=== PATIENT | female | born 1980 | race Caucasian/White ===

== ENCOUNTER 2020-10-19 13:34 | Emergency (ER) | payer OTHER, SELFPAY ==
[2020-10-19 13:40] VITALS: BP 139/74; PULSE 83; RESP 16; TEMP 37.4; O2SAT 98
--- NOTE | 2020-10-19 14:01 | ED.FEMALEGU ---
HPI - Female Genitourinary General Chief complaint: Urogenital-Female Stated complaint: Kidney infection Time Seen by Provider: 10/19/20 14:01 Source: patient and RN notes reviewed Mode of arrival: ambulatory Limitations: no limitations History of Present Illness HPI Narrative: 40-year-old female presents to the [facility] with lower back pain. Reports that she was seen at another clinic and was told she did not have a UTI. Is waiting for her culture to come back. Patient states the pain is in her lower back. No loss retention of bowel or bladder. No frequency or urgency. Worse with movement. Denies nausea vomiting or diarrhea. Denies fevers. No chest pain or shortness of breath. Reports that she does have a history of multiple UTIs but has not had one in several years Related Data Allergies Allergy/AdvReac Type Severity Reaction Status Date / Time Sulfa (Sulfonamide Allergy Unknown SWELLS UP Verified 10/19/20 13:52 Antibiotics) Review of Systems Review of Systems: Narrative: CONSTITUTIONAL: Denies fever, chills, or sweats. CARDIOVASCULAR: Denies chest pain, palpitations, or edema. RESPIRATORY: Denies cough or dyspnea. GASTROINTESTINAL: Denies abdominal pain, nausea, vomiting, or diarrhea. GENITOURINARY: Denies dysuria or hematuria. SKIN: Denies rash or itching. MUSCULOSKELETAL: Reports lower back pain. Denies joint pain, or myalgia. NEUROLOGIC: Denies headache, numbness, or weakness. PSYCHIATRIC: Denies anxiety or depression. All other systems reviewed are negative, except as documented in HPI. PMFSH Comments At the time of my signature, I reviewed and agree with the nursing past medical, surgical, social, and family history. There is no relevant family history pertinent to the patient complaint. Exam Narrative: Exam Narrative: GENERAL: This is a well-nourished, well-developed patient, in no apparent distress. HEAD: normocephalic, atraumatic. EYES: PERRL. Sclera clear/white. Vision is grossly intact. EARS: External ears normal CARDIOVASCULAR: Regular rate and rhythm without murmurs, gallops, or rubs. RESPIRATORY: Clear to auscultation. Breath sounds equal bilaterally. No wheezes, rales, or rhonchi. GASTROINTESTINAL: Abdomen soft, non-tender, nondistended. Bowel sounds are active. No hepato-splenomegaly, or palpable masses. No guarding. SKIN: warm, intact with no suspicious lesions or rash, good texture and turgor. NEURO: awake, alert, and oriented to person, place and time. There were no obvious focal neurologic abnormalities. EXTREMITIES: No joint tenderness, effusion, or edema noted. No calf tenderness. Negative Homans sign bilaterally. BACK: Tender without deformity. No CVA tenderness. Pain is worse with lying to sitting. Able to raise legs without issue. Normal gait. Course Vital Signs Vital signs: Vital Signs Temperature 99.3 F 10/19/20 13:40 Pulse Rate 83 10/19/20 13:40 Respiratory Rate 16 10/19/20 13:40 Blood Pressure 139/74 10/19/20 13:40 Pulse Oximetry 98 10/19/20 13:40 Temperature 99.3 F 10/19/20 13:40 Pulse Rate 83 10/19/20 13:40 Respiratory Rate 16 10/19/20 13:40 Blood Pressure 139/74 10/19/20 13:40 Pulse Oximetry 98 10/19/20 13:40 Reviewed MDM - Female Genitourinary MDM Narrative Medical decision making narrative: Discussed with patient the values from the lab. There were no bilirubin no ketones, no leukocytes, no nitrites. Trace amount of blood noted. Discussed treatment plan possible pulled muscle versus possible kidney stone. Discussed signs and symptoms to go to the directly to the emergency room. Patient states that she would prefer to try the muscle relaxer and anti-inflammatories and understands that if things get worse has severe pain, loss of bowel or bladder or anything she feels emergency she needs to go to the nearest emergency room. Patient agreed to this. Discharge instructions reviewed with patient, as well as provided in writing per nu
== END 2020-10-19 14:20 | disposition home or self-care (01) ==
PROVIDERS: Emergency Provider Nurse Practitioner; PCP Nurse Practitioner Family
DX: S39.012A Strain of muscle, fascia and tendon of lower back, initial encounter (principal); X58.XXXA Exposure to other specified factors, initial encounter
CPT/HCPCS: 81003; 87086; 99213; G0463

== ENCOUNTER 2022-05-26 12:03 | Emergency (ER) | payer BC, OTHER, SELFPAY ==
[2022-05-26 12:09] VITALS: BP 122/60; PULSE 87; RESP 16; TEMP 37; O2SAT 98
--- NOTE | 2022-05-26 12:11 | ED.URI ---
HPI - URI/Sore Throat General Chief Complaint: Upper Respiratory Infection Stated Complaint: neck & back hurts coughing Time Seen by Provider: 05/26/22 12:12 Source: patient and RN notes reviewed History of Present Illness HPI Narrative: patient is a 41-year-old female who presents to the Urgent Care with complaints of cough, upper back pain, neck pain, sore throat, runny nose. Patient states that she has been using cough drops, Tylenol, ibuprofen. Denies of any fevers, nausea, vomiting or ill exposures. No other acute complaints. No acute distress noted. Patient aware of the plan of care. Some parts of this dictation were generated by voice recognition software and may contain typographical and/or grammatical inaccuracies. Related Data Allergies Allergy/AdvReac Type Severity Reaction Status Date / Time Sulfa (Sulfonamide Allergy Unknown SWELLS UP Verified 05/26/22 12:12 Antibiotics) Review of Systems Review of Systems: CONSTITUTIONAL: Denies fever, chills, or sweats. EYES: Denies visual changes, redness, or discharge. ENT: Reports rhinorrhea, sore throat, neck pain CARDIOVASCULAR: Denies chest pain, palpitations, or edema. RESPIRATORY: Reports of cough without dyspnea. GASTROINTESTINAL: Denies abdominal pain, nausea, vomiting, or diarrhea. GENITOURINARY: Denies dysuria or hematuria. SKIN: Denies rash or itching. MUSCULOSKELETAL: reports of upper back pain NEUROLOGIC: Denies headache, numbness, or weakness. All other systems reviewed are negative, except as documented in HPI. PMFSH Comments At the time of my signature, I reviewed and agree with the nursing past medical, surgical, social, and family history. There is no relevant family history pertinent to the patient complaint. Exam Narrative: GENERAL: This is a well-nourished, well-developed patient, in no apparent distress. HEAD: normocephalic, atraumatic. EYES: PERRL. Sclera clear/white. Vision is grossly intact. EARS: External ears normal, auditory canals clear and without drainage, TMs normal without perforation. Hearing grossly intact. NOSE: External nose normal with no obvious nasal discharge, nares without redness, clear rhinorrhea. THROAT: Mucous membranes moist, posterior pharynx clear. moderate postnasal drainage NECK: Neck supple, non-tender without lymphadenopathy CARDIOVASCULAR: Regular rate and rhythm without murmurs, gallops, or rubs. RESPIRATORY: Clear to auscultation. Breath sounds equal bilaterally. No wheezes, rales, or rhonchi. SKIN: warm, intact with no suspicious lesions or rash, good texture and turgor. NEURO: awake, alert, and oriented to person, place and time. There were no obvious focal neurologic abnormalities. EXTREMITIES: No clubbing, cyanosis, or edema. BACK: Nontender without deformity or crepitance. No flank tenderness. Course Course Level of Care: Express Care Visit Vital Signs Vital signs: Vital Signs Temperature 98.6 F 05/26/22 12:09 Pulse Rate 87 05/26/22 12:09 Respiratory Rate 16 05/26/22 12:09 Blood Pressure 122/60 05/26/22 12:09 Pulse Oximetry 98 05/26/22 12:09 Oxygen Delivery Room Air 05/26/22 12:09 Temperature 98.6 F 05/26/22 12:09 Pulse Rate 87 05/26/22 12:09 Respiratory Rate 16 05/26/22 12:09 Blood Pressure 122/60 05/26/22 12:09 Pulse Oximetry 98 05/26/22 12:09 Oxygen Delivery Room Air 05/26/22 12:09 Reviewed MDM - URI/Sore Throat MDM Narrative Medical decision making narrative: reviewed lab results with the patient. She is aware that influenza and strep swabs are both negative. Educated patient on culture and we will call within 72 hours if the strep culture is positive and antibiotics are necessary. Symptoms are consistent with a viral syndrome/common cold. Advised the patient to complete the steroid regimen as prescribed to help with cough. Use Tylenol/ ibuprofen as needed for body aches and pain. Stop the combination drugs. Use Mucinex as needed
== END 2022-05-26 12:35 | disposition home or self-care (01) ==
PROVIDERS: Emergency Provider Nurse Practitioner Family; PCP Nurse Practitioner Family
DX: B34.9 Viral infection, unspecified (principal)
CPT/HCPCS: 87081; 87804; 87880; 99213; G0463

== ENCOUNTER 2022-06-18 15:11 | Emergency (ER) | payer BC, OTHER, SELFPAY ==
--- NOTE | ~2022-06-18 | XR_ITS ---
XR chest 2V DATE: 06/18/2022 16:12 INDICATION: Cough for 4 weeks TECHNIQUE: 2 views COMPARISON: None FINDINGS: Normal heart size. No hilar or mediastinal enlargement. No pulmonary infiltrate or consolid ation, pleural effusion or pulmonary vascular congestion or pneumothorax. Included skeletal structure s are unremarkable. IMPRESSION: Negative Reviewed, dictated and finalized at location B. 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
[2022-06-18 15:27] VITALS: BP 126/74; PULSE 91; RESP 16; TEMP 36.6; O2SAT 99
--- NOTE | 2022-06-18 17:44 | ED.URI ---
HPI - URI/Sore Throat General Chief Complaint: Upper Respiratory Infection Stated Complaint: sore throat cough that runs to back Time Seen by Provider: 06/18/22 17:34 Source: patient, RN notes reviewed and old records reviewed Mode of arrival: ambulatory Limitations: no limitations History of Present Illness HPI Narrative: 41 year old female who presents to [facility] care with complaints of sore throat, dry cough, and pain to her upper back with deep inspiration. Patient reports that she was here 4 weeks ago and tested for influenza and strep wich were both negative treated with steroid pack with continued symptoms. Patient denies any known fevers but has felt feverish, denies any chest pain or any shortness of breath. Patient has taken Tylenol, DayQuil, and Delsym cough syrup without improvement in her symptoms.Patient reports home COVID test negative, has had COVID vaccinations X2 no flu shot. MD elicited complaint: cough and sore throat Pain scale (0-10): 7 Treatments prior to arrival: acetaminophen and other (DayQuil, Delsym cough syrup) Related Data Allergies Allergy/AdvReac Type Severity Reaction Status Date / Time Sulfa (Sulfonamide Allergy Unknown SWELLS UP Verified 06/18/22 16:02 Antibiotics) Review of Systems Review of Systems: CONSTITUTIONAL: Denies malaise, chills, sweats, has felt feverish EYES: Denies visual changes, redness, or discharge. ENT: Reports rhinorrhea, congestion, sinus pain,no otalgia positive for sore throat. CARDIOVASCULAR: Denies chest pain, palpitations, or edema. RESPIRATORY: Reports cough.? Denies dyspnea.upper back pain with deep inspiration GASTROINTESTINAL: Denies abdominal pain, nausea, vomiting, diarrhea SKIN: Denies rash or itching. MUSCULOSKELETAL: Denies myalgia. NEUROLOGIC: Denies headache. All systems reviewed & are unremarkable except as noted in HPI and below PMFSH Past Medical History Medical History (Updated 06/22/22 @ 09:46 by Cierra Dsouza NP) Strep throat UTI (urinary tract infection) Surgical History Surgical History H/O LEEP H/O tubal ligation Social History Social History (Updated 06/22/22 @ 09:46 by Cierra L. Meet, REALTY SPECIALIST) Smoking status: Never smoker Alcohol intake: unknown Substance use type: does not use Gender identity (if verbalized by the patient): Female Comments At time of signature, agree with nursing past medical, surgical, social and family history. There is no relevant family history pertinent to the presenting complaint Exam Narrative: GENERAL: Well-appearing, well-nourished, and in no acute distress. HEAD: Normocephalic EYES: PERRLA, conjunctivae clear ENT: Nares clear, turbinates edematous and erythematous, clear discharge. Mucous membranes moist. TM pearly hester with dull light reflex bilaterally; no tragal tenderness. Oropharynx erythematous without lesions. Tonsils not enlarged and without exudate, no drooling, no hoarseness, no trismus, uvula midline.post nasal drainage NECK: Supple. No lymphadenopathy CHEST: Clear to auscultation, breath sounds equal. No wheezing, rhonchi, rales, or stridor. No respiratory distress, speaks in full sentences.dry cough, no tachypnea,SAO2 99% on room air, no tachypnea HEART: Regular rate and rhythm. No murmur heard. SKIN: Warm, dry, no rash. NEURO: Alert and oriented x3. PSYCH: Normal mood and affect Course Course Emergency Course: Patient is aware of diagnosis, understands and agrees to treatment plan.? Anticipatory guidance given.? Patient agrees to follow-up as directed and is aware of reasons to seek care at the emergency department. Portions of this record may have been created with voice recognition software Level of Care: Express Care Visit Vital Signs Vital signs: Vital Signs Temperature 36.6 C 06/18/22 15:27 Pulse Rate 91 06/18/22 15:27 Respiratory Rate 16 06/18/22 15:27 Blood Pressure
== END 2022-06-18 17:56 | disposition home or self-care (01) ==
PROVIDERS: Emergency Provider Registered Nurse; PCP Pediatrics
DX: J02.9 Acute pharyngitis, unspecified (principal)
CPT/HCPCS: 71046; 99213; G0463

== ENCOUNTER 2023-04-25 14:00 | Emergency (ER) | payer BC, SELFPAY ==
[2023-04-25 14:05] VITALS: BP 125/74; PULSE 83; RESP 20; TEMP 36.4; O2SAT 100
--- NOTE | 2023-04-25 14:28 | ED.FEMALEGU ---
HPI - Female Genitourinary General Chief complaint: Urogenital-Female Stated complaint: Urinary Problem Time Seen by Provider: 04/25/23 14:28 Source: patient, RN notes reviewed and old records reviewed Mode of arrival: ambulatory Limitations: no limitations History of Present Illness HPI Narrative: 42 year old female who presents to [facility] care with complaints of UTI symptoms starting yesterday which include urinary burning, frequency, urgency for the past 2 days. Patient has not taken any AZO for her symptoms. Patient denies any fevers, chills or sweats. She denies any episodes of nausea,vomiting or diarrhea. Patient denies any concern for STD exposure. MD elicited complaint: dysuria Pertinent past history: other (past UTI) Onset (ago): day(s) (2) Location of symptoms: perineum Severity: moderate Female Urogenital Radiation: Non-Radiating Severity scale (1-10): 5 Quality of pain: burning and aching Vaginal discharge: none Vaginal bleeding: none Related Data Allergies Allergy/AdvReac Type Severity Reaction Status Date / Time Sulfa (Sulfonamide Allergy Unknown SWELLS UP Verified 06/18/22 16:02 Antibiotics) Review of Systems Review of Systems: CONSTITUTIONAL: Denies fever, chills, or sweats. CARDIOVASCULAR: Denies chest pain, palpitations, or edema. RESPIRATORY: Denies cough or dyspnea. GASTROINTESTINAL: Denies abdominal pain, nausea, vomiting, or diarrhea. GENITOURINARY: Reports dysuria, frequency, urgency. Denies flank pain or hematuria. SKIN: Denies rash or itching. MUSCULOSKELETAL: Denies back pain or myalgia. Denies CVA tenderness NEUROLOGIC: Denies headache All systems reviewed & are unremarkable except as noted in HPI and below PMFSH Past Medical History Medical History (Updated 04/26/23 @ 08:49 by Cierra Dsouza NP) Strep throat UTI (urinary tract infection) Surgical History Surgical History H/O LEEP H/O tubal ligation Social History Social History (Updated 06/22/22 @ 09:46 by Cierra Dsouza NP) Smoking status: Never smoker Alcohol intake: unknown Substance use type: does not use Living arrangements: with family Gender identity (if verbalized by the patient): Female Comments At time of signature, agree with nursing past medical, surgical, social and family history. There is no relevant family history pertinent to the presenting complaint Exam Narrative: GENERAL: Well-appearing, well-nourished, and in no acute distress. HEAD: Normocephalic, atraumatic.TM's normal with good light reflex, throat pink with no swelling NECK: Supple. no lymphadenopathy CHEST: Clear to auscultation. No respiratory distress.SAO2 100% on room air HEART: Regular rate and rhythm. No murmur heard. Normal peripheral pulses. ABDOMEN: Soft, nontender, nondistended, normal active bowel sounds. No CVA tenderness, reports dysuria, urgency and frequency of urination. EXTREMITIES: Normal range of motion. No edema. SKIN: Warm, dry, no rash. NEURO: No focal deficits. Alert and oriented x3. Course Course Emergency Course: Patient is aware of diagnosis, understands and agrees to treatment plan.? Anticipatory guidance given.? Patient agrees to follow-up as directed and is aware of reasons to seek care at the emergency department. Portions of this record may have been created with voice recognition software Level of Care: Express Care Visit Vital Signs Vital signs: Vital Signs Temperature 36.4 C 04/25/23 14:05 Pulse Rate 83 04/25/23 14:05 Respiratory Rate 20 04/25/23 14:05 Blood Pressure 125/74 04/25/23 14:05 Pulse Oximetry 100 04/25/23 14:05 Oxygen Delivery Room Air 04/25/23 14:05 Temperature 36.4 C 04/25/23 14:05 Pulse Rate 83 04/25/23 14:05 Respiratory Rate 20 04/25/23 14:05 Blood Pressure 125/74 04/25/23 14:05 Pulse Oximetry 100 04/25/23 14:05 Oxygen Delivery Room Air 04/25/23 14:05 MDM -
== END 2023-04-25 14:45 | disposition home or self-care (01) ==
PROVIDERS: Emergency Provider Registered Nurse; PCP Pediatrics
DX: N39.0 Urinary tract infection, site not specified (principal)
CPT/HCPCS: 81003; 87077; 87086; 87186; 99213; G0463

== ENCOUNTER 2023-06-22 19:51 | Emergency (ER) | payer BC, SELFPAY ==
--- NOTE | 2023-06-22 19:52 | ED.URI ---
HPI - URI/Sore Throat General Chief Complaint: Upper Respiratory Infection Stated Complaint: headache/cough/chills Time Seen by Provider: 06/22/23 20:00 Source: patient and RN notes reviewed Mode of arrival: ambulatory Limitations: no limitations History of Present Illness HPI Narrative: 42-year-old female presents with concern for 2 day history of cough, chest congestion, headache. She reports she has been trying NyQuil without relief. 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 She reports she has been sleeping a lot. MD elicited complaint: cough Related Data Allergies Allergy/AdvReac Type Severity Reaction Status Date / Time Sulfa (Sulfonamide Allergy Unknown SWELLS UP Verified 06/18/22 16:02 Antibiotics) Review of Systems Review of Systems: CONSTITUTIONAL: Reports malaise, chills, sweats, fatigue EYES: Denies visual changes, redness, or discharge. ENT: Reports rhinorrhea, congestion, sinus pain, and sore throat. CARDIOVASCULAR: Denies chest pain, palpitations, or edema. RESPIRATORY: Reports cough. Denies dyspnea. GASTROINTESTINAL: Denies abdominal pain, nausea, vomiting, diarrhea SKIN: Denies rash or itching. MUSCULOSKELETAL: Reports myalgia. NEUROLOGIC: Reports headache. All systems reviewed & are unremarkable except as noted in HPI and below PMFSH Past Medical History Medical History (Updated 06/22/23 @ 20:06 by Emily Carmona NP) Strep throat UTI (urinary tract infection) Surgical History Surgical History H/O LEEP H/O tubal ligation Social History Social History (Updated 06/22/22 @ 09:46 by Cierra Dsouza NP) Smoking status: Never smoker Alcohol intake: unknown Substance use type: does not use Living arrangements: with family Gender identity (if verbalized by the patient): Female Comments At time of signature, agree with nursing past medical, surgical, social and family history. There is no relevant family history pertinent to the presenting complaint Exam Narrative: GENERAL: Nontoxic-appearing, well-nourished, and in no acute distress. HEAD: Normocephalic EYES: PERRLA, conjunctivae clear ENT: Nares clear. Mucous membranes moist. TM pearly hester with dull light reflex bilaterally; no tragal tenderness. Oropharynx not erythematous without lesions. Tonsils not enlarged and without exudate, no drooling, no hoarseness, no trismus, uvula midline. NECK: Supple. No lymphadenopathy CHEST: Clear to auscultation, breath sounds equal. No wheezing, rhonchi, rales, or stridor. No respiratory distress, speaks in full sentences. HEART: Regular rate and rhythm. No murmur heard. SKIN: Warm, dry, no rash. NEURO: Alert and oriented x3. PSYCH: Normal mood and affect Course Course Emergency Course: Patient is aware of diagnosis, understands and agrees to treatment plan. Anticipatory guidance given. Patient agrees to follow-up as directed and is aware of reasons to seek care at the emergency department. Portions of this record may have been created with voice recognition software Level of Care: Express Care Visit Vital Signs Vital signs: Reviewed. MDM - URI/Sore Throat MDM Narrative Medical decision making narrative: Differential diagnosis considered: Porter virus, strep pharyngitis, allergic rhinitis, upper respiratory tract infection, sinusitis, rhinosinusitis, nasopharyngitis. viral pharyngitis, otitis media, otitis externa, pneumonia, bronchitis, viral cough syndrome, viral syndrome, and influenza. Exam findings show no acute concerns or changes; patient is non-toxic appearing and is in no distress. Patient is appropriate for outpatient treatment and follow-up. Lab Data Attestation: I reviewed the patient's lab results. Critical Care Time Critical Care Time Critical Care Time: No Discharge Plan Discharge Clinical Impression: COVID Patient Disposition: Home, Self-Care Condition: Stable Instructions: How to Recover
[2023-06-22 19:55] VITALS: BP 145/82; PULSE 104; RESP 18; TEMP 36.8; O2SAT 97
== END 2023-06-22 20:14 | disposition home or self-care (01) ==
PROVIDERS: Emergency Provider Nurse Practitioner; PCP Family Medicine
DX: R05.9 Cough, unspecified (principal); U07.1 COVID-19
CPT/HCPCS: 87426; 87804; 99213; C9803; G0463

== ENCOUNTER 2024-02-01 12:02 | Emergency (ER) | payer BC, OTHER, SELFPAY ==
[2024-02-01 12:19] VITALS: BP 123/75; PULSE 80; RESP 16; TEMP 36.9; O2SAT 97
--- NOTE | 2024-02-01 13:13 | ED.FEMALEGU ---
HPI - Female Genitourinary General Chief complaint: Urogenital-Female Stated complaint: Poss UTI Time Seen by Provider: 02/01/24 13:07 Source: patient and RN notes reviewed Mode of arrival: ambulatory Limitations: no limitations History of Present Illness HPI Narrative: Patient presents today with a 2 day history of suprapubic pressure that has worsened since last night and now include some mild dysuria. No [id number] treatment prior to arrival. No additional symptoms. Related Data Home Medications Medication Instructions Recorded Confirmed gabapentin 300 mg capsule 300 mg PO TID 02/01/24 02/01/24 phentermine 15 mg capsule 15 mg PO DAILY 02/01/24 02/01/24 Allergies Allergy/AdvReac Type Severity Reaction Status Date / Time Sulfa (Sulfonamide Allergy Unknown SWELLS UP Verified 02/01/24 12:32 Antibiotics) Review of Systems Review of Systems: CONSTITUTIONAL: Denies body aches, fever, chills, or sweats. EYES: Denies visual changes, redness, or discharge. ENT: Denies rhinorrhea, congestion, sore throat, or otalgia. CARDIOVASCULAR: Denies chest pain, palpitations, or edema. RESPIRATORY: Denies cough or dyspnea. GASTROINTESTINAL: Denies nausea, vomiting, or diarrhea.+ suprapubic pressure GENITOURINARY: Denies hematuria.+ dysuria SKIN: Denies rash, itching, or wounds. MUSCULOSKELETAL: Denies back pain, joint pain, or myalgia. NEUROLOGIC: Denies headache, numbness, tingling, or weakness. PSYCH: Denies depression or anxiety. [facility] Past Medical History Medical History Strep throat UTI (urinary tract infection) Surgical History Surgical History H/O LEEP H/O tubal ligation Social History Social History Smoking status: Never smoker Alcohol intake: unknown Substance use type: does not use Living arrangements: with family Gender identity (if verbalized by the patient): Female Comments At time of signature, I have reviewed and agree with nursing past medical, surgical, social and family history unless otherwise noted. Please see nursing chart for further information. There is no relevant family history pertinent to the presenting complaint Exam Narrative: GENERAL: Well-appearing, well-nourished, and in no acute distress. HEAD: Normocephalic, atraumatic. EYES: EOMI. No redness or drainage. Conjunctivae normal. ENT: Mucous membranes pink and moist. NECK: Normal AROM. CHEST: No respiratory distress. Clear to auscultation. HEART: Regular rate and rhythm. No murmur appreciated. ABDOMEN: Soft, nontender, nondistended, normal active bowel sounds. EXTREMITIES: Normal range of motion. No edema. SKIN: Warm, dry, no rash. Capillary refill normal. Normal skin turgor. NEURO: No focal deficits. Alert and oriented x3. Gait steady. PSYCH: Normal affect. No signs of depression or anxiety. Course Course Level of Care: Express Care Visit Vital Signs Vital signs: Vital Signs Temperature 98.4 F 02/01/24 12:19 Pulse Rate 80 02/01/24 12:19 Respiratory Rate 16 02/01/24 12:19 Blood Pressure 123/75 02/01/24 12:19 Pulse Oximetry 97 02/01/24 12:19 Oxygen Delivery Room Air 02/01/24 12:19 Temperature 98.4 F 02/01/24 12:19 Pulse Rate 80 02/01/24 12:19 Respiratory Rate 16 02/01/24 12:19 Blood Pressure 123/75 02/01/24 12:19 Pulse Oximetry 97 02/01/24 12:19 Oxygen Delivery Room Air 02/01/24 12:19 Reviewed MDM - Female Genitourinary MDM Narrative Medical decision making narrative: Urinalysis shows 2+ blood and 2+ leukocytes, consistent with infection. Prescription for cephalexin and Pyridium sent to pharmacy. Anticipatory guidance given. Differential Diagnosis Differential diagnosis: Likely urinary tract infection, vaginitis, cystitis and other (Pyelonephritis) Lab Da
[2024-02-01 13:19] LABS: EDUAAPPEAR Clear; EDUABILI Negative; EDUABLOOD 2+; EDUACOLOR1 Tea Colored; EDUAGLUCOSE Negative; EDUAKETONE Negative; EDUALEUKO 2+; EDUANITRATE Negative; EDUAPH 6.5; EDUAPROTEIN Negative; EDUAUROBILI 0.2
== END 2024-02-01 13:15 | disposition home or self-care (01) ==
PROVIDERS: Emergency Provider Nurse Practitioner; PCP Family Medicine
DX: N30.01 Acute cystitis with hematuria (principal)
CPT/HCPCS: 81003; 87086; 99213; G0463

== ENCOUNTER 2024-02-26 10:22 | Emergency (ER) | payer BC, OTHER, SELFPAY ==
[2024-02-26 10:28] VITALS: BP 115/74; PULSE 85; RESP 20; TEMP 36.4; O2SAT 100
--- NOTE | 2024-02-26 10:43 | ED.FEMALEGU ---
HPI - Female Genitourinary General Chief complaint: Urogenital-Female Stated complaint: poss uti/bladder infection Time Seen by Provider: 02/26/24 10:43 Source: patient and RN notes reviewed Mode of arrival: ambulatory Limitations: no limitations History of Present Illness HPI Narrative: 43-year-old female presented for complaint of mid bilateral lower back pain for about 2 days. Endorses starting to have pressure with urination. Denies hematuria, nausea, vomiting, abdominal pain, constipation, diarrhea, fevers or chills. States she has been more sexually active with sig other for the past few weeks. Was treated for UTI 02/01/24. Related Data Home Medications Medication Instructions Recorded Confirmed gabapentin 300 mg capsule 300 mg PO TID 02/01/24 02/26/24 ergocalciferol (vitamin D2) 1,250 1,250 mcg PO WEEKLY 02/26/24 02/26/24 mcg (50,000 unit) capsule Allergies Allergy/AdvReac Type Severity Reaction Status Date / Time Sulfa (Sulfonamide Allergy Unknown SWELLS UP Verified 02/26/24 10:33 Antibiotics) Review of Systems Review of Systems: CONSTITUTIONAL: Denies body aches, fever, chills, or sweats. CARDIOVASCULAR: Denies chest pain, palpitations, or edema. RESPIRATORY: Denies cough or dyspnea. GASTROINTESTINAL: Denies abdominal pain, nausea, vomiting, or diarrhea. GENITOURINARY: Reports dysuria, flank pain denies frequency, urgency, hematuria SKIN: Denies rash, itching, or wounds. MUSCULOSKELETAL: Denies back pain or myalgia. [facility] Past Medical History Medical History Strep throat UTI (urinary tract infection) Surgical History Surgical History H/O LEEP H/O tubal ligation Social History Social History Smoking status: Never smoker Alcohol intake: unknown Substance use type: does not use Living arrangements: with family Gender identity (if verbalized by the patient): Female Comments At time of signature, I have reviewed and agree with nursing past medical, surgical, social and family history unless otherwise noted. Please see nursing chart for further information. There is no relevant family history pertinent to the presenting complaint Exam Narrative: GENERAL: Well-appearing ENT: Mucous membranes pink and moist. NECK: Normal AROM. Supple. CHEST: No respiratory distress. Clear to auscultation. HEART: Regular rate and rhythm. ABDOMEN: Soft, nontender, nondistended, normal active bowel sounds. No CVA tenderness SKIN: Warm, dry, no rash. NEURO: No focal deficits. Alert and oriented x3. Gait steady. PSYCH: Normal affect. Course Course Emergency Course: Patient is aware of diagnosis, understands and agrees to treatment plan. Anticipatory guidance given. Patient agrees to follow-up as directed and is aware of reasons to seek care at the emergency department. Portions of this record may have been created with voice recognition software Level of Care: Express Care Visit Vital Signs Vital signs: Vital Signs Temperature 97.6 F 02/26/24 10:28 Pulse Rate 85 02/26/24 10:28 Respiratory Rate 20 02/26/24 10:28 Blood Pressure 115/74 02/26/24 10:28 Pulse Oximetry 100 02/26/24 10:28 Oxygen Delivery Room Air 02/26/24 10:28 Temperature 97.6 F 02/26/24 10:28 Pulse Rate 85 02/26/24 10:28 Respiratory Rate 20 02/26/24 10:28 Blood Pressure 115/74 02/26/24 10:28 Pulse Oximetry 100 02/26/24 10:28 Oxygen Delivery Room Air 02/26/24 10:28 Reviewed MDM - Female Genitourinary MDM Narrative Medical decision making narrative: Reviewed most recent urine culture from 01/31, showed normal poonam. patient is notified of these results and is advised to await culture results. Declined concern for STD. History of tubal ligation. Discussed physical exam findings. Advised
[2024-02-26 10:49] LABS: EDUAAPPEAR Clear; EDUABILI Negative; EDUABLOOD 2+; EDUACOLOR1 Yellow; EDUAGLUCOSE Negative; EDUAKETONE Negative; EDUALEUKO Negative; EDUANITRATE Negative; EDUAPH 5.5; EDUAPROTEIN Negative; EDUAUROBILI 0.2
== END 2024-02-26 11:04 | disposition home or self-care (01) ==
PROVIDERS: Emergency Provider Nurse Practitioner Family; PCP Family Medicine
DX: R30.0 Dysuria (principal)
CPT/HCPCS: 81003; 87086; 99213; G0463